=== PATIENT | male | born 1965 | race Two or more races ===

== ENCOUNTER 2023-10-20 21:10 | Emergency (ER) | payer MEDICAID, OTHER ==
[~2023-10-20] VITALS: Ht 182.9 cm; Wt 100.0 kg
[2023-10-20 21:45] VITALS: TEMP 98.3
[2023-10-20 21:53] VITALS: BP 190/89; O2SAT 98
[2023-10-20 23:53] VITALS: PULSE 72; RESP 18
[2023-10-21] MEDS ORDERED: NAP500T PO (00:13)
[2023-10-21] MEDS ORDERED: CEPH500C PO (00:13)
[2023-10-21] MEDS: TETANUS-DIPTH-ACEL PERTUSSIS 0.5ML SYR Tdap IM ONE (01:08)
[2023-10-21] MEDS: cefTRIAXone SOD 1,000 MG VL IM ONE (01:08)
[2023-10-21] MEDS: KETOROLAC TROMETH 60MG/2ML VIAL IM ONE (01:09)
== END 2023-10-21 01:09 | disposition home or self-care (01) ==
LOC: ER 21:10
DX: L03.012 Cellulitis of left finger (principal); I10 Essential (primary) hypertension
CPT/HCPCS: 90471; 90715; 96372; 99284; J0696; J1885